=== PATIENT | female | born 1940 ===

== ENCOUNTER 2023-03-28 17:15 | Inpatient (IN) | payer MEDICARE, BC ==
[~2023-03-28] VITALS: Ht 160 cm; Wt 77.6 kg
--- NOTE | 2023-03-28 18:37 | NUR ---
PT ARRIVED TO ROOM 314 VIA EMS, ASSISTED OVER TO THE BED UTILIZING BED SHEET. PT IS A&OX3 BUT CAN BE CONFUSED. NO COMPLAINTS OF PAIN OR DISCOMFORT. LUNG SOUNDS CLEAR ON ROOM AIR. PT WAS INCONTINENT OF STOOL, PT WAS CHANGED. SEVERAL SORES NOTED ON THE COCCYX IN VARIOUS STAGES, EXCORIATION NOTED, MEPILEX PAD PLACED. WHEN PT WAS ASKED WHAT BROUGHT HER TO THE ER TODAY SHE WAS NOT ABLE TO REMEMBER. PT ARRIVED TO THE ROOM ON A BICARB DRIP RUNNING AT 125ML/HR. DRIP WAS STOPPED BY EMS. NO ORDERS AT THIS TIME BY PROVIDER.
[2023-03-28 18:46] VITALS: BP 96/43; PULSE 80; TEMP 97.8
[2023-03-28] MEDS ORDERED: ZOLOFT 50MG50 MG PO (19:51)
[2023-03-28] MEDS ORDERED: ARICEPT10 MG PO (19:52)
[2023-03-28] MEDS ORDERED: NORVASC2.5 MG PO (19:54)
[2023-03-28] MEDS ORDERED: ALDACTONE 25MG25 M1 PO (19:55)
[2023-03-28] MEDS ORDERED: TOPROL XL100 MG PO (19:56)
[2023-03-28] MEDS ORDERED: PLAVIX 75MG TAB75 MG PO (19:58)
[2023-03-28] MEDS ORDERED: PRAVACHOL 40MG40 MG PO (19:59)
[2023-03-28] MEDS ORDERED: PRINIVIL2.5 MG PO (20:00)
[2023-03-28 20:01] VITALS: BP 86/43; PULSE 77; TEMP 97.6
[2023-03-28] MEDS ORDERED: LIPITOR 40MG TA40 MG PO (20:01)
[2023-03-28] MEDS ORDERED: ASPIRIN E.C. 8181 MG PO (20:01)
[2023-03-28 21:00] VITALS: BP_SYST 96
[2023-03-28 23:02] VITALS: BP 86/55; PULSE 76; TEMP 97.5
[2023-03-28 23:59] VITALS: BP 98/62
[2023-03-29] VITALS (10 sets, daily range): BP systolic 95–107; BP diastolic 48–60; PULSE 76–82; TEMP 97.8–98.6
[2023-03-29 00:21] LABS: BASO % 0.2 % (0.0-2.0); EOS % 0.1 % (0.0-4.0); GRAN # 10.9 K/mm3 (1.4-6.5); GRAN % 82.9 % (42.2-75.2); HEMOGLOBIN 11.9 g/dl (12.5-16.0); LYMPH # 1.5 K/mm3 (1.2-3.4); LYMPH % 11.3 % (20.0-51.0); MEAN CELL VOLUME 90 fl (80.0-100.0); MEAN CORPUSCULAR HEMOGLOBIN 31 pg (27-31); MEAN CORPUSCULAR HGB CONC 34 g/dl (33.0-37.0); MEAN PLATELET VOLUME 12.1 fl (7.4-10.4); MONO # 0.7 K/mm3 (0.1-0.6); PLATELET COUNT 206 K/mm3 (130-400); RED BLOOD COUNT 3.88 M/mm3 (4.10-5.30); REDCELL DISTRIBUTION WIDTH-CV 18.6 % (11.5-14.5)
[2023-03-29 00:28] LABS: INR 1.1 (0.8-3.0); PROTHROMBIN TIME 12.1 SECONDS (9.7-12.8)
[2023-03-29 00:42] LABS: ALBUMIN 2.4 gm/dL (3.4-4.8); BILIRUBIN,TOTAL 0.5 mg/dL (0.2-1.2); CALCIUM 8.4 mg/dL (8.4-10.2); CREATININE, serum 4.23 mg/dL (0.57-1.11); POTASSIUM 3.7 mmol/L (3.5-4.5); TOTAL PROTEIN 5.7 gm/dL (6.2-8.1); URIC ACID 10.1 mg/dL (2.6-6.0)
--- NOTE | 2023-03-29 01:30 | NUR ---
03/29 0005 LAB NOTIFIED ME THAT THEY HAD TO POKE THE PT. THREE TIMES IN ORDER TO GET LABS, AND WERE NOT ABLE TO GET ENOUGH FOR THE ESR, I ATTEMPTED TO GET A URINE SAMPLE FROM THE PT.'S CATHETER, BUT ONLY PULLED BACK 2ML, SO I LEFT THE TUBING KINKED NEAR THE TOP, AND WILL CHECK IN A COUPLE HOURS TO SEE IF I AM ABLE TO GET ENOUGH FOR A SAMPLE THEN. 0103 LAB CALLED WITHA CRITICAL CO2 LEVEL OF 12, I NOTIFED DR. SEVERINO OF THE LAB, AND ALSO THAT THE PT. STILL IS NOT HAVING ANY URINE OUTPUT, HE GAVE ME A TELEPHONE ORDER FOR SODIUM BICARB IV AT 50ML/HR, WILL CONTINUE TO MONITOR.
[2023-03-29 07:12] LABS: BASO % 0.1 % (0.0-2.0); EOS % 0.1 % (0.0-4.0); GRAN # 11.2 K/mm3 (1.4-6.5); GRAN % 84.2 % (42.2-75.2); HEMOGLOBIN 11.6 g/dl (12.5-16.0); LYMPH # 1.4 K/mm3 (1.2-3.4); LYMPH % 10.9 % (20.0-51.0); MEAN CELL VOLUME 92 fl (80.0-100.0); MEAN CORPUSCULAR HEMOGLOBIN 30 pg (27-31); MEAN CORPUSCULAR HGB CONC 33 g/dl (33.0-37.0); MEAN PLATELET VOLUME 12.5 fl (7.4-10.4); MONO # 0.6 K/mm3 (0.1-0.6); MONO % 4.2 % (1.7-9.3); PLATELET COUNT 215 K/mm3 (130-400); RED BLOOD COUNT 3.81 M/mm3 (4.10-5.30); REDCELL DISTRIBUTION WIDTH-CV 18.9 % (11.5-14.5)
[2023-03-29 07:13] LABS: HEMATOCRIT 34.9 % (37.0-47.0)
[2023-03-29 07:28] LABS: ALBUMIN 2.4 gm/dL (3.4-4.8); CALCIUM 8.3 mg/dL (8.4-10.2); CREATININE, serum 4.36 mg/dL (0.57-1.11); PHOSPHOROUS 4.8 mg/dL (2.3-4.7); POTASSIUM 3.5 mmol/L (3.5-4.5)
[2023-03-29] MEDS ORDERED: STOOL SOFTENER100 M2 PO (08:54)
[2023-03-29] MEDS ORDERED: [UNRECOGNIZED DRUG - OTHER] PO (08:54)
[2023-03-29] MEDS ORDERED: FRUIT PO (08:54)
[2023-03-29 09:16] LABS: ERYTHROCYTE SEDIMENTATION RATE 11 mm/hr (0-30)
[2023-03-29 11:21] LABS: MUCOUS Present (NOT PRESENT); SQUAMOUS EPITHELIAL 0-2 /hpf (0-10); URINE BACTERIA Rare /hpf (NONE SEEN); URINE RBC >50 /hpf (0-2); URINE WBC 20-50 /hpf (0-2)
[2023-03-29 11:36] LABS: COLLECTION METHOD CATHETER; PH 5.5 (5.0-8.5); URINE APPEARANCE Hazy (CLEAR/HAZY); URINE BLOOD 3+ (NEGATIVE); URINE COLOR Yellow (YELLOW); URINE GLUCOSE Negative (NEGATIVE); URINE KETONE TRACE (NEGATIVE); URINE NITRATE Negative (NEGATIVE); URINE PROTEIN(semi-quant) 3+ (NEGATIVE)
--- NOTE | 2023-03-29 12:58 | NUR ---
Notify Dr. Higgins of elevated Troponin. TO consult cardiology.
--- NOTE | 2023-03-29 13:07 | NUR ---
Notified BRANDI Olmos, of card consult.
--- NOTE | 2023-03-29 15:24 | NUR ---
machine worker and Mai Cadet, social media campaign manager met with patient's spouse and two daughters, Cherelle and Sara and provided information on alf care, Hospice and usp care. Family all agree that patient cannot return home with spouse and her care is to great for them to manage. Worker provided Choice form and this was signed and also the Medicare.gov share for termite control service representative care options. Worker provided information on payment to nursing homes for the above care. Workers arranged for Marissa financial counselor, meet with spouse and daughters at this time. Marissa will pursue completion of a Financial assistance application as well has a medicaid application.
--- NOTE | 2023-03-29 16:08 | NUR ---
Notified BRANDI Olmos, results of 3hour troponin 2.132.
--- NOTE | 2023-03-29 16:24 | NUR ---
Initial visit: Silk Presser stopped by room on rounds. Pt was resting and content with and daughters in the room. Pt has no needs right now. Silk Presser will follow up as needed.
--- NOTE | 2023-03-29 16:25 | NUR ---
sheet metal layout worker met with patient to discuss discharge planning. sheet metal layout worker notes, family is at bedside including, Cherelle (daughter), Sara (daughter) and Casey "Lloyd" (spouse). sheet metal layout worker confirmed contact information, Cherelle P#: [phone], Sara P#: [phone], Casey "Lloyd" P#: [phone]. Family was able to confirm her information. Patient's primary care physician is Dr. Lambert, preferred pharmacy is [facility] and does not struggle to afford her medications. Sara Villarreal and Casey expressed they are listed as [employer]'s DPOA-HC along with [employer]y's two other children. sheet metal layout worker requested a copy to update her file. Patient has a wheelchair and four wheel walker with a seat. She needs assistance with all ADLS. She had been set up with [facility] but they had just started on Tuesday before she had been admitted. Family expressed patient's doctor had spoke with them about choosing between pallative care or additional supports through either snf or exterminator care. Family had questions regarding what services Medicare covers and the cost. sheet metal layout worker requested Rosa Tilley, director data architecture, to assist with explaining the services for care home care, snf and pallative care. sheet metal layout worker requested a financial counselor assist the family with navigating eligibility for Medicaid. After speaking with the family and provided a list of Medicare providers in patient's area, they would like the social work supervisor to fax referrals to [facility], [facility] and [facility]. [facility] is their preferred choice as it is in the same town patient is from. Acid Crane Operator faxed referral to [facility], [facility]. Discharge Plan: halfway care
--- NOTE | 2023-03-29 17:36 | NUR ---
Shift summary: Pt alert/awake intermittently throughout the day. and 2 daughters at bedside. VSS, afebrile, SR on telemetry. Noted to have elevated troponin, cardiology consulted. Serial troponins ordered, trending up, 3hr 2.132. Pt unable to keep fluid down this AM. Gags and coughs after swallow until thick, clear sputum is cleared. ST eval ordered. Per eval, pt needs further f/u on swallow. ST states that it appears to be esophogeal. Pt placed NPO until further orders. Burk catheter remains intact. <50ml urine output this shift. UA collected. Pt started on IV abx. IV fluids continue per order. Pt incontinent of bowel having several S/M soft BM. Buttocks noted to be red and painful with several Stage II/III pressure ulcers along either side of sacral split.
--- NOTE | 2023-03-29 23:58 | NUR ---
PT. HAS AN ORDER FOR A SPECIALTY MATTRESS, BUT IT DOESN'T SPECIFY WHICH KIND, AND IT IS AFTER HOURS NOW, SO WE WON'T BE ABLE TO CLARIFY AND ORDER ONE UNTIL TOMORROW, SO I HAD MARINA, THE NURSE'S AIDE HELP ME GET A WAFFLW OVERLAY PUT ON THE PT.'S MATTRESS, PT. TOLERATED TURNING WELL, ALTHOUGH SHE DOES GET COLD EASILY WHEN NOT COVERED UP, PT.'S BOTTOM IS CLEAN AT THE MOMENT, AND MEPILEX IS STILL C/D/I, TURNED HER TO HER L) SIDE ONCE WE WERE DONE PLACING THE OVERLAY, PULLED HER UP IN BED, COVERED HER UP, AND LET HER KNOW WE WOULD BE TURNING HER EVERY COUPLE HOURS, BUT WOULD TRY AND LET HER GET SOME SLEEP OTHERWISE, WILL CONTINUE TO MONITOR.
[2023-03-30 00:02] VITALS: BP_SYST 97
[2023-03-30 03:18] VITALS: BP 90/53; PULSE 74; TEMP 98
[2023-03-30 04:33] VITALS: BP_SYST 90
[2023-03-30 07:16] VITALS: BP 82/44; PULSE 69; TEMP 97.3
[2023-03-30 07:29] LABS: BASO % 0.2 % (0.0-2.0); EOS # 0.1 K/mm3 (0.0-0.7); EOS % 1.2 % (0.0-4.0); GRAN # 7.5 K/mm3 (1.4-6.5); HEMATOCRIT 37.6 % (37.0-47.0); HEMOGLOBIN 12.4 g/dl (12.5-16.0); LYMPH # 1.8 K/mm3 (1.2-3.4); LYMPH % 18.1 % (20.0-51.0); MEAN CELL VOLUME 93 fl (80.0-100.0); MEAN CORPUSCULAR HEMOGLOBIN 31 pg (27-31); MEAN CORPUSCULAR HGB CONC 33 g/dl (33.0-37.0); MEAN PLATELET VOLUME 12.2 fl (7.4-10.4); MONO # 0.6 K/mm3 (0.1-0.6); MONO % 6.1 % (1.7-9.3); PLATELET COUNT 168 K/mm3 (130-400); RED BLOOD COUNT 4.03 M/mm3 (4.10-5.30); REDCELL DISTRIBUTION WIDTH-CV 18.7 % (11.5-14.5)
[2023-03-30 07:47] LABS: ALBUMIN 2.2 gm/dL (3.4-4.8); CALCIUM 8.1 mg/dL (8.4-10.2); CREATININE, serum 4.14 mg/dL (0.57-1.11); PHOSPHOROUS 3.9 mg/dL (2.3-4.7)
[2023-03-30 07:57] LABS: POTASSIUM 2.9 mmol/L (3.5-4.5)
[2023-03-30 09:00] VITALS: BP_SYST 82
--- NOTE | 2023-03-30 12:05 | NUR ---
Dr. Higgins at bedside, talks to family. Verified family wishes of comfort care. VO d/c labs.
--- NOTE | 2023-03-30 16:34 | NUR ---
stove bottom worker was contacted by [facility] regarding patient. [facility] expressed patient previously had a short stay with them but the took her home AMA. [facility] expressed concern this might happen again. stove bottom worker expressed the family is in agreement that they are unable to care for her at home, so they are looking at group home care. [facility] Stubbs provided the cost for private pay. stove bottom worker expressed the family is working with a financial counselor to apply for Medicaid. stove bottom worker will speak with the family regarding the cost and update [facility] later. stove bottom worker was notified the family would like to implement hospice services. stove bottom worker contacted the family regarding the DPOA from the day prior did not mention the agents could make healthcare decisions on patient's behalf. Family completed a DPOA-HC at the patient's last hospital stay at [facility]. Family contacted [facility] and requested they fax the clinical social work therapist the DPOA-HC. stove bottom worker was notified [facility] will be by the hospital to visit with the family. After the meeting, the family decided they would like the patient be discharged to [facility] with comfort care. [facility]op[facility] Merino expressed they would be able to accept patient on . stove bottom worker to arrange EMS transport on day of discharge. stove bottom worker faxed clinical updates, medicaid application and [facility]HC [facility]. stove bottom worker, Ximena Cadet, left general message with Dr. Higgins. Discharge Plan: [facility] with comfort care
[2023-03-30 20:00] VITALS: BP_SYST 82
[2023-03-31 01:12] VITALS: BP_SYST 82
--- NOTE | 2023-03-31 01:27 | NUR ---
PT. JUST HOLLERED TO ASK IF SHE COULD HAVE A DRINK OF WATER, TECHNICALLY GALINA ORDER IS STILL NPO, SPEECH HAD BEEN GOING TO EVALUATE HER, BUT PT. IS NOW COMFORT CARES, SO DEISI, THE NURSE'S AIDE SAT HER ALL THE WAY UP, AND HELPED HER DRINK A FEW SIPS OF WATER, WILL CONTINUE TO MONITOR.
--- NOTE | 2023-03-31 08:03 | NUR ---
UPON ENTERING ROOM PATIENT LAYING IN BED. SHE IS ALERT TO SELF.SHE DENIES PAIN AT THIS TIME. FLOREZ HAS 25ML OF URINE. PATIENT CALL LIGHT WITHIN REACH AND BED AT LOWEST POSITION.
[2023-03-31] MEDS ORDERED: TRANSDERM-0.5 MG/21 TD ×3 (08:55→09:48)
[2023-03-31] MEDS ORDERED: ROXANOL 20MG20 MG/ML SL ×3 (08:56→09:48)
--- NOTE | 2023-03-31 11:09 | NUR ---
PATIENT WAS DISCHARGED AND TRASPORTED TO [facility] BY EMS AT 1105.
--- NOTE | 2023-03-31 12:15 | NUR ---
Educational Interpreter collaborated with BRANDI Benitez who advised patient is ready to be discharged today to [facility] on comfort care. RAIMUNDO contacted [facility] and scheduled transport for 1030. RAIMUNDO placed EMS forms on chart. RAIMUNDO met with family to provide discharge time and plan. All are in agreement. RAIMUNDO contacted [facility] and faxed discharge orders. Discharge Plan: [facility] on comfort care
== END 2023-03-31 11:05 | disposition hospice, home (50) | DRG 683 ==
LOC: MEDICAL 17:15
PROVIDERS: ADMIT Internal Medicine Nephrology
DX: N17.9 Acute kidney failure, unspecified (principal); E87.20 Acidosis, unspecified; J90 Pleural effusion, not elsewhere classified; R77.8 Other specified abnormalities of plasma proteins; D72.829 Elevated white blood cell count, unspecified; I10 Essential (primary) hypertension; E11.9 Type 2 diabetes mellitus without complications; Z79.4 Long term (current) use of insulin; R53.1 Weakness
CPT/HCPCS: J2543; J3370; J7050; J7070